=== PATIENT | female | born 1970 | race Caucasian/White ===

== ENCOUNTER 2024-11-03 04:03 | Emergency (ER) | payer SELFPAY ==
[~2024-11-03] VITALS: Ht 165.1 cm; Wt 82.0 kg
[2024-11-03 04:16] VITALS: O2SAT 99
[2024-11-03] MEDS: IBUPROFEN 600MG TABLET PO ONE (04:44)
[2024-11-03] MEDS ORDERED: IBUP-2029 MT (05:36)
[2024-11-03 06:28] VITALS: BP 130/76; PULSE 74; RESP 18; TEMP 36.7; O2SAT 97
== END 2024-11-03 06:32 | disposition home or self-care (01) ==
LOC: ER 04:03
DX: S60.221A Contusion of right hand, initial encounter (principal); S80.01XA Contusion of right knee, initial encounter; S20.221A Contusion of right back wall of thorax, initial encounter; S80.02XA Contusion of left knee, initial encounter; M54.6 Pain in thoracic spine; E11.9 Type 2 diabetes mellitus without complications; Z79.899 Other long term (current) drug therapy; W01.0XXA Fall on same level from slipping, tripping and stumbling without subsequent striking against object, initial encounter; Y93.01 Activity, walking, marching and hiking; Y92.89 Other specified places as the place of occurrence of the external cause; Y99.8 Other external cause status
CPT/HCPCS: 71045; 73130; 73562; 99284